=== PATIENT | male | born 1950 | race Caucasian/White ===

== ENCOUNTER → 2018-05-17 08:55 | Outpatient (CLI) | payer MEDICARE, SELFPAY ==
[2018-05-17 10:29] LABS: Absolute Lymphocyte Count 1.31 X10^3/ul (0.83-4.51); Absolute Neutrophil Count 2.8 X10^3/uL (2.0-7.7); Basophil# 0.06 X10^3/uL; Basophil% 1.2 % (0-1); Eosinophil# 0.21 X10^3/uL; Eosinophils% 4.2 % (0-5); Hematocrit 41.9 % (40-54); Hemoglobin 13.3 g/dl (13.0-16.5); Lymphocyte # 1.31 X10^3/ul (4.0); Mean Corp Hgb Conc 31.7 g/gl (32-36); Mean Platelet Vol. 10.6 fl (6.2-12.0); Monocyte# 0.63 X10^3/uL; Monocyte% 12.5 % (0-10); Neutrophil # 2.82 X10^3/uL (2.7-7.7); Neutrophil % 56.1 % (47-70); POSITIVE COUNT NO; POSITIVE DIFFERENTIAL NO; POSITIVE MORPHOLOGY NO; Platelet Count 284 K/mm3 (150-450); RBC Distribution Width CV 14.9 % (11.6-14.6); RBC Distribution Width SD 44.9 fl (35.1-43.9); Red Blood Count 5.11 M/mm3 (4.6-6.2)
[2018-05-17 10:59] LABS: Vitamin B12 300 pg/mL (211-911)
[2018-05-17 11:28] LABS: ALB/GLOB Ratio 0.9 RATIO (0.9-2.4); AST(SGOT) 18 U/L (15-37); Alanine Aminotransfer ALT/SGPT 25 U/L (16-61); Albumin, Serum 3.5 g/dL (3.2-5.0); Alkaline Phosphatase 61 U/L (45-117); Anion Gap 10 (5-15); BUN 20 mg/dL (7-18); BUN/Creat Ratio 19.4 RATIO (10-20); Calcium,Total 8.5 mg/dL (8.5-10.1); Chloride 107 mmol/L (98-107); Cholesterol 226 mg/dL (200); Creatinine, Serum 1.03 mg/dL (0.70-1.30); EST Glomerular Filtration Rate 77 mL/min (>60); Est Glom Filt Rate - Afr Amer 93 mL/min (>60); Globulin 3.9 g/dL (2.2-4.2); Glucose 87 mg/dL (74-106); High Density Lipoprotein 46 mg/dL; PSA,Total - Annual Screen 5.33 ng/mL (0.00-4.00); Protein, Total 7.4 g/dL (6.4-8.2); Sodium Level 143 mmol/L (136-145); Thyroid Stim Hormone (TSH) 1.56 uIU/mL (0.358-3.74); Triglycerides 126 mg/dL; Very Low Density Lipoprotein 25 mg/dL (5-40)
== END ==
PROVIDERS: Family Provider Family Medicine; PCP Family Medicine; Visit Provider Family Medicine
DX: Z00.01 Encounter for general adult medical examination with abnormal findings (principal); I10 Essential (primary) hypertension; E78.5 Hyperlipidemia, unspecified; G62.9 Polyneuropathy, unspecified; Z12.5 Encounter for screening for malignant neoplasm of prostate
CPT/HCPCS: 36415; 80053; 80061; 82607; 84153; 84443; 85025; G0103

== ENCOUNTER → 2018-11-14 | Outpatient (CLI) | payer MEDICARE, SELFPAY ==
[2018-11-14 13:12] LABS: Cholesterol 168 mg/dL (200); High Density Lipoprotein 53 mg/dL; PSA,Total- Diagnostic 6.77 ng/mL (0.0-4.0); Triglycerides 95 mg/dL; Very Low Density Lipoprotein 19 mg/dL (5-40)
== END | disposition home or self-care (01) ==
LOC: BFHLAB 12-27 15:28
PROVIDERS: Family Provider Family Medicine; PCP Family Medicine; Visit Provider Family Medicine
DX: E78.5 Hyperlipidemia, unspecified (principal); R97.20 Elevated prostate specific antigen [PSA]
CPT/HCPCS: 36415; 80061; 84153

== ENCOUNTER → 2019-05-16 15:33 | Outpatient (CLI) | payer MEDICARE, SELFPAY ==
[2019-05-16 16:48] LABS: Absolute Lymphocyte Count 1.72 X10^3/uL (0.83-4.51); Absolute Neutrophil Count 3.6 X10^3/uL (2.0-7.7); Basophil# 0.08 X10^3/uL; Basophil% 1.3 % (0-1); Eosinophil# 0.22 X10^3/uL; Eosinophils% 3.5 % (0-5); Hematocrit 40.7 % (40-54); Hemoglobin 12.5 g/dL (13.0-16.5); Lymphocyte # 1.72 X10^3/ul (4.0); Lymphocyte % 27.3 % (19-41); Mean Corp Hgb Conc 30.7 g/dL (32-36); Mean Corpuscular Hgb 26.8 pg (27.0-32.0); Mean Corpuscular Volume 87.2 fL (80-94); Mean Platelet Vol. 10.5 fl (6.2-12.0); Monocyte# 0.62 X10^3/uL; Monocyte% 9.8 % (0-10); NRBC Flagged by Analyzer 0 % (0-5); Neutrophil # 3.64 X10^3/uL (2.7-7.7); Neutrophil % 57.8 % (47-70); Platelet Count 265 K/mm3 (150-450); RBC Distribution Width SD 44.9 fl (35.1-43.9); Red Blood Count 4.67 M/mm3 (4.6-6.2); White Blood Count 6.3 K/mm3 (4.4-11.0)
[2019-05-16 17:02] LABS: ALB/GLOB Ratio 1.1 RATIO (0.9-2.4); AST(SGOT) 20 U/L (15-37); Alanine Aminotransfer ALT/SGPT 23 U/L (16-61); Albumin, Serum 3.8 g/dL (3.2-5.0); Alkaline Phosphatase 70 U/L (45-117); Anion Gap 4 (5-15); BUN 20 mg/dL (7-18); Calcium,Total 8.2 mg/dL (8.5-10.1); Chloride 109 mmol/L (98-107); Cholesterol 179 mg/dL (200); Creatinine, Serum 0.95 mg/dL (0.70-1.30); EST Glomerular Filtration Rate 84 mL/min (>60); Est Glom Filt Rate - Afr Amer 101 mL/min (>60); Globulin 3.5 g/dL (2.2-4.2); Glucose 88 mg/dL (74-106); High Density Lipoprotein 54 mg/dL; PSA,Total- Diagnostic 7.44 ng/mL (0.0-4.0); Protein, Total 7.3 g/dL (6.4-8.2); Sodium Level 143 mmol/L (136-145); Triglycerides 96 mg/dL; Very Low Density Lipoprotein 19 mg/dL (5-40)
[2019-05-16 17:08] LABS: Vitamin B12 455 pg/mL (211-911)
[2019-05-20 13:41] LABS: PSA, Free 3.16 ng/mL; PSA, Free % 36.3 % (.); PSA, Total Ultrasensitive 8.7 ng/mL (0.0-4.0)
== END ==
PROVIDERS: Family Provider Family Medicine; PCP Family Medicine; Visit Provider Urology
DX: I10 Essential (primary) hypertension (principal); E78.5 Hyperlipidemia, unspecified; E53.8 Deficiency of other specified B group vitamins; R97.20 Elevated prostate specific antigen [PSA]
CPT/HCPCS: 36415; 80053; 80061; 82607; 84153; 84154; 85025

== ENCOUNTER → 2019-12-31 10:20 | Outpatient (CLI) | payer MEDICARE, SELFPAY ==
[2019-12-31 11:49] LABS: PSA,Total- Diagnostic 9.57 ng/mL (0.0-4.0)
== END ==
PROVIDERS: PCP Family Medicine; Referring Provider Urology; Visit Provider Urology
DX: R97.20 Elevated prostate specific antigen [PSA] (principal)
CPT/HCPCS: 36415; 84153

== ENCOUNTER → 2020-02-05 11:38 | Outpatient (CLI) | payer MEDICARE, SELFPAY ==
--- NOTE | 2020-02-05 | PROSBIL_PTH ---
PATIENT: DAYANA MATA LOC: [facility] U#:[id number] AGE/SX: 74/M ROOM: RE02/05/[address]: Dr. Abdulaziz Mcclain MD : 1950 BED: DIS: SPEC #: [id number] RECD: 02/05/20 13:04 STATUS: GRAYSON SOTERO #: [id number] RITESH: 02/05/20 00:[address]: Abdulaziz Mcclain DEPT: SURGICAL PATHOLOGY RECD BY: Randall Aparicio ENTERED: 02/05/20 13:04 SP TYPE: PROST BX MIQUEL DR: Dr. Gera Belle DO Tissues: A - PROSTATE RIGHT B - PROSTATE RIGHT C - PROSTATE RIGHT D - PROSTATE LEFT E - PROSTATE LEFT F - PROSTATE LEFT Procedures: PROSTATE BX HEADER OPERATION: Prostate biopsy PRE-OP DIAGNOSIS: Elevated PSA, prostate cancer TISSUE SUBMITTED: A - Right apex, B - Right mid, C - Right base, D - Left apex, E - Left mid, F - Left base MICROSCOPIC DIAGNOSIS A. Right prostate, apex, core biopsy: Adenocarcinoma. [employer] grade: 7 (4+3)) Cores involved: 1 out of 1 core Tissue involved: 95% Perineural invasion: Present Greatest tumor length: 18 mm (discontinuous) B. Right prostate, mid, core biopsy: Adenocarcinoma. Abhinav grade: 7 (4+3)) Cores involved: 2 out of 2 cores Tissue involved: 85% Perineural invasion: Present Greatest tumor length: 11 mm (discontinuous) C. Right prostate, base, core biopsy: Adenocarcinoma. [employer] grade: 7 (4+3)) Cores involved: 2 out of 2 cores Tissue involved: 65% Perineural invasion: Present Greatest tumor length: 12mm. D. Left prostate, apex, core biopsy: Benign prostatic and skeletal muscle tissue. E. Left prostate, mid, core biopsy: Minimal chronic inflammation. F. Left prostate, base, core biopsy: Minimal chronic inflammation and focal acute inflammation. AM:veronique 02/06/20 COMMENT Case has been reviewed in consultation with Dr. Green who concurs with the above diagnosis. IDC:ANTON MICROSCOPIC DESCRIPTION Slides are reviewed. GROSS DESCRIPTION A - Received is one container designated prostate, right apex. The specimen consists of one elongated fragment of light sampson-white soft tissue measuring 1.3 cm in length and 0.1 cm in diameter. The specimen is totally submitted in one cassette. B - Received is one container designated prostate, right mid. The specimen consists of two elongated fragments of light sampson-white soft tissue measuring 1 and 1.8 cm in length and 0.1 cm in diameter. The specimen is totally submitted in one cassette. C - Received is one container designated prostate, right base. The specimen consists of two elongated fragments of light sampson-white soft tissue each measuring 1.5 cm in length and 0.1 cm in diameter. The specimen is totally submitted in one cassette. D - Received is one container designated prostate, left apex. The specimen consists of one elongated fragment of light sampson-white soft tissue measuring 1 cm in length and <0.1 cm in diameter. The specimen is totally submitted in one cassette. It is doubtful the specimen will survive processing. E - Received is one container designated prostate, left mid. The specimen consists of two elongated fragments of light sampson-white soft tissue each measuring 1 cm in length and 0.1 cm in diameter. The specimen is totally submitted in one cassette. F - Received is one container designated prostate, left base. The specimen consists of two elongated fragments of light sampson-white soft tissue each measuring 1.5 cm in length and 0.1 cm in diameter. The specimen is totally submitted in one cassette. / SJ:rg 02/05/20 TC:0 [facility]: [id number]
== END ==
PROVIDERS: PCP Family Medicine; Referring Provider Urology; Visit Provider Urology
DX: C61 Malignant neoplasm of prostate (principal)
CPT/HCPCS: 88305; G0416

== ENCOUNTER 2020-03-26 05:23 | Day surgery (SDC) | payer MEDICARE, SELFPAY ==
--- NOTE | 2020-03-20 10:50 | EKG12_ITS ---
Test Reason : PREOP Blood Pressure : / mmHG Vent. Rate : 054 BPM Atrial Rate : 054 BPM P-R Int : 154 ms QRS Dur : 090 ms QT Int : 428 ms P-R-T Axes : 022 028 048 degrees QTc Int : 405 ms Sinus bradycardia with sinus arrhythmia Otherwise normal ECG Confirmed by EMERITA KAHN, JOSE GUADALUPE ([id number]), associate entertainment editor JOSELYN VINSON ([id number]) on 03/24/2020 2:03:00 PM Referred By: Abdulaziz Mcclain Confirmed By:GLENN FELDER MD
[2020-03-20 11:37] LABS: Hematocrit 40.5 % (40-54); Hemoglobin 12.2 g/dL (13.0-16.5); Mean Corp Hgb Conc 30.1 g/dL (32-36); Mean Corpuscular Hgb 24.8 pg (27.0-32.0); Mean Corpuscular Volume 82.3 fL (80-94); Mean Platelet Vol. 10.6 fl (6.2-12.0); Platelet Count 292 K/mm3 (150-450); RBC Distribution Width CV 17.2 % (11.6-14.6); RBC Distribution Width SD 49.5 fl (35.1-43.9); Red Blood Count 4.92 M/mm3 (4.6-6.2); White Blood Count 6.4 K/mm3 (4.4-11.0)
[2020-03-26] VITALS (12 sets, daily range): BP systolic 108–146; BP diastolic 64–105; PULSE 55–86; RESP 16–18; TEMP 36.2–37.2; O2SAT 95–100; BMI 30.9
[2020-03-26] MEDS: Lactated Ringers 1,000 ML 100 ML IV ×3 (06:12→17:54)
--- NOTE | 2020-03-26 07:11 | PCM.HP.STD ---
Problem List (1) Prostate cancer Status: Acute History of Present Illness Date of Admission: 03/26/20 Chief Complaint: Prostate cancer The patient is a 69 year old male with history of large prostate was found to have prostate cancer is elected undergo radical prostatectomy with bilateral nerve sparing. Past Medical History Allergies No Known Allergies Allergy (Verified 03/26/20 05:48) Home Medications: Ambulatory Orders Medication Instructions Recorded Atenolol [Tenormin (Beta Victor Hugo)] 50 mg PO DAILY 12/30/14 Omeprazole [Prilosec] 20 mg PO DAILY 12/30/14 Acetaminophen [Tylenol Extra 500 - 1,000 mg PO Q6H PRN PRN 03/17/20 Strength] Pravastatin [Pravachol] 20 mg PO QHS 03/17/20 Tamsulosin HCl [Flomax] 0.4 mg PO QHS 03/17/20 Surgical History: no surgical history Smoking Status: Never smoker Tobacco Use: Non-smoker Review of Systems Constitutional: Denies: Chills, Fever, Weight Change HEENT: Denies: Head Aches, Sinus Congestion, Sinus Drainage Cardiovascular: Denies: Chest Pain, Palpitations Respiratory: Denies: Cough, Shortness of breath at rest, Sputum production Gastrointestinal: Denies: Abdominal Pain, Nausea, Vomiting Genitourinary: Denies: Dysuria Musculoskeletal: Denies: Joint Pain, Joint Tenderness Skin: Denies: Rash, Wounds Neurological: Denies: Numbness, Tingling, Focal weakness Psychiatric: Denies: Anxiety, Depression, Homicidal Ideations, Suicidal Ideations Hematologic/ Lymphatic: Denies: Easy Bruising, Easy Bleeding VTE Information - Inpt Only VTE Present on Admission: No Patient Problems: Active and Suspected Problems Prostate cancer (Acute) - Physical Exam Vitals/I&O's: Vital Signs Temp Pulse Resp BP Pulse Ox 98.3 F 86 16 138/94 H 97 03/26/20 05:51 03/26/20 05:51 03/26/20 05:51 03/26/20 05:51 03/26/20 05:51 Oxygen Delivery Method Room Air Weight: 103.5 kg Body Mass Index (BMI) 30.9 General: Alert, Oriented x3, Cooperative HEENT: Atraumatic, PERRLA, EOMI, Normocephalic Neck: Supple, No JVD, Negative Carotid Bruits Lungs: Clear to auscultation, Normal air movement Cardiovascular: Regular rate, No murmurs Abdomen: Bowel Sounds Present, Soft, Non Tender Extremities: No edema, Capillary Refill Less than 3 Seconds Skin: No rashes, No breakdown Musculoskeletal: No Tenderness to Palpation of Joints or Extremities Neurological: Cranial nerves II-XII grossly intact Psych/Mental Status: Normal Affect, Appropriate Current Medications Cefazolin Sodium 2 gm/ Sodium (Chloride) 110 mls @ 150 mls/hr IV PREOP ONE Stop: 03/26/20 07:53 Lactated Ringer's () 1,000 mls @ 100 mls/hr IV .Q10H LEXUS Last Admin: 03/26/20 06:12 Dose: 100 mls/hr Documented by: Lactated Ringer's () 1,000 mls @ 100 mls/hr IV .Q10H LEXUS Last Admin: 03/26/20 06:15 Dose: 100 mls/hr Documented by: Assessment/Plan All Active Problems Prostate cancer (Acute) Plan to proceed with radical prostatectomy with bilateral nerve sparing.
--- NOTE | 2020-03-26 07:16 | PCM.DC.URO ---
Discharge Diet: Light diet - advance as tolerated Discharge Activity: May Not Drive, May not drive while taking narcotic pain medications., May Shower Return to work on:: 05/07/20 May shower in (days): 1 Call your doctor if your incision/area has: Continuous Slow Oozing, Sudden Increased Bleeding, Increased Pain/ Swelling, Increased Redness, Foul Smelling Discharge Call your doctor if you observe: Fever of 101 or Higher, Inability to have a bowel movement, Uncontrolled pain Suture Line Care: Avoid Pulling/Pushing, Avoid Pinching/Bending Instructions: Radical Prostatectomy Allergies/Adverse Reactions: Allergies No Known Allergies Allergy (Verified 03/26/20 05:48) Medications to take at Discharge Atenolol [Tenormin (Beta [employer])] 50 mg PO DAILY 12/30/14 Omeprazole [Prilosec] 20 mg PO DAILY 12/30/14 Acetaminophen [Tylenol Extra Strength] 500 - 1,000 mg PO Q6H PRN PRN 03/17/20 Pravastatin [Pravachol] 20 mg PO QHS 03/17/20 Tamsulosin HCl [Flomax] 0.4 mg PO QHS 03/17/20 Ciprofloxacin [Cipro] 500 mg PO BID #20 tab 03/26/20 Docusate Sodium [Colace] 100 mg PO BID #20 cap 03/26/20 Hydrocodone/Acetaminophen [[employer] 5-325 Tablet] 1 each PO Q4H PRN PRN 5 Days #14 tablet 03/26/20 The following prescriptions were given: Ciprofloxacin [Cipro] 500 mg PO BID #20 tab Transmission Status: Pending to [facility] Docusate Sodium [Colace] 100 mg PO BID #20 cap Transmission Status: Pending to [facility] Hydrocodone/Acetaminophen [[employer] 5-325 Tablet] 1 each PO Q4H PRN PRN 5 Days #14 tablet PRN Reason: Pain Score 1-10/10 Transmission Status: Sent to [facility] Orders to be completed after discharge: 12 Lead EKG [[facility]] Time Frame: 03/17/20, Facility: [facility], Location: Cardiovascular Services Primary Care Physician: Gera Belle DO [Primary Care Provider] - Test Results: Test results from this visit will be discussed in further detail at your follow-up appointment, if applicable. Please Follow Up With: Abdulaziz Mcclain MD When: in 2 weeks, please call to make an appointment. Proposed Discharge Date: 03/27/20
[2020-03-26] MEDS: Cefazolin 2 GM in 0.9% Normal Saline 100 ML IV (07:22)
--- NOTE | 2020-03-26 07:30 | PROST_PTH ---
PATIENT: DAYANA MATA LOC: [facility] U#:[id number] AGE/SX: 69/M ROOM: RE03/26/[address]: Dr. Abdulaziz Mcclain MD : 1950 BED: DIS: 03/28/2020 SPEC #: [id number] RECD: 03/26/20 13:25 STATUS: GRAYSON REEarl #: [id number] RITESH: 03/26/20 07:[address]: Abdulaziz Mcclain DEPT: SURGICAL PATHOLOGY RECD BY: Darwin Pastor ENTERED: 03/27/20 09:48 SP TYPE: PROSTATE OTHR DR: Dr. Gera Belle DO Tissues: A - Prostate, NOS B - Adipose tissue C - LYMPH NODE BIOPSY D - LYMPH NODE BIOPSY E - Seminal vesicle, NOS F - Rectum, NOS G - Rectum, NOS Procedures: Surgery Specimen Level III Surgery Specimen Level IV Surgery Specimen Level HEADER OPERATION: Lap robotic radical prostatectomy with nerve monitoring PRE-OP DIAGNOSIS: Elevated PSA; malignant neoplasm of prostate; BPH with lower urinary tract symptoms TISSUE SUBMITTED: A - Prostate, B - Fat over prostate, C - Lymph nodes, right, D - Lymph nodes, left, E - Seminal vesicle, F - Margin off rectum, G - Distal margin off rectum MICROSCOPIC DIAGNOSIS A. Prostate, radical prostatectomy: Prostatic adenocarcinoma. See cancer summary in comment section. B. Fat over prostate: A piece of mature adipose tissue, negative for carcinoma. C. Right lymph node: One lymph node, negative for metastatic carcinoma. D. Left lymph nodes: Two out of two lymph nodes, negative for metastatic carcinoma. E. Seminal vesicle: A piece of fibroadipose and fibromuscular tissue with crush cells. Definite seminal vesicle tissue is not identified. Negative for carcinoma. F. Margin of rectum: A piece of fibroconnective tissue, positive for carcinoma. G. Distal margin of rectum, biopsy: A piece of fibromuscular and fibroadipose tissue, positive for carcinoma. SJ:veronique 03/31/20 COMMENT PROSTATE CANCER (RADICAL) SUMMARY: Procedure: Radical Prostatectomy Prostate Size: Weight: 244.6 gm Size: 9.5 cm craniocaudally, 8.5 cm transversely and 6 cm anterior-posteriorly Histologic type: Adenocarcinoma Histologic grade: Grade group 5, Abhinav score 4+5=9 Tertiary pattern: Grade 3 Tumor Quantitation: Estimated percentage of prostate involved by tumor: ~20% Location of dominant tumor: Right lobe Extraprostatic Extension: Present, nonfocal Location of extraprostatic Extension: Right posterior Urinary Bladder Neck Invasion: Present. See comment below. Seminal Vesicle Invasion: Cannot be determined. See comment below. Lymphovascular Invasion: Not identified Perineural Invasion: Present and frequent Margins: Involved by invasive carcinoma. Non-limited (greater than or equal to 3 mm). See comment below. Linear length of positive margin: 1.5 cm Margin positivity in area of extraprostatic extension: Present Specimens F & G, most likely represent real posterior margin and area of extraprostatic extension. Treatment effect: No known presurgical therapy. Regional Lymph Nodes: Number of lymph nodes involved by carcinoma: 0 Total Number of Lymph Nodes Examined: 3 Additional Pathologic Findings: - Benign nodular prostatic hyperplasia, glandular and stromal types. - Chronic inflammation. Ancillary study: Not performed PATHOLOGIC STAGE: pT3 pN0 Mx The above summary is in compliance with [employer] (CAP) Cancer Protocols Checklist and [place] [employer] Committee on Cancer (AJCC), Staging Manual, 8th Ed. Please make reference to previous specimen ([id number]) right prostate, apex, mid and base, core biopsy with diagnosis of prostatic adenocarcinoma. Note: The tumor is present in apical, mid and basal portion of right and left lobes and predominantly present in the right lobe. The tumor measures approximately 9.0 cm in greatest dimension. Apical shave and bladder shaved margins are positive for tumor. No gross seminal vesicle tissue is identified. Seminal vesicle tissue is noted microscopically in blocks 14 and 15 and not involved by the carcinoma. Specimen E submitted as seminal vesicle tissue is also negative for carcinoma, however, shows marked crush artifact. Specimen F and G, margin of rectum and distal margin of rectum are extensively involved by the tumor. This case is discussed with Dr. Mcclain on 04/01/20. Case has been reviewed in consultation with Dr. Mullen who concurs with the above diagnosis. IDC:AM MICROSCOPIC DESCRIPTION Slides are reviewed. GROSS DESCRIPTION A - Received is one container labeled with the patient's name and designated prostate. The specimen consists of a prostate gland weighing 244.6 gm and measuring 9.5 cm craniocaudally, 8.5 cm transversely and 6 cm anterior-posteriorly without seminal vesicles or vas deferens. The specimen is differentially inked as follows: anterior - red, right half - blue, left half - green and entire posterior surface - black. The gland is serially sectioned from apex of gland to base of gland at approximately 3-4 mm thickness. Serial sections do not reveal a distinct mass lesion. Machine Preservative Filler sections are submitted as follows: 1 - distal urethral shaves margin, 2 - bladder shaved margin, 3 - prostate, most distal section, 4-7 - apex, 8-15 - mid portion of prostate, 16-20 - basal portion of prostate gland. / AM: 03/28/20 B - Received in fixative is one container labeled with the patient's name and designated fat over prostate. The specimen consists of reddish-sampson clotted blood measuring 2 x 1 x <0.1 cm. The specimen is totally submitted in one cassette. / AM: 03/27/20 C - Received in fixative is one container labeled with the patient's name and designated right lymph nodes. The specimen consists of two irregular fragments of yellow-sampson soft tissue ranging in size from 1?to 2.5 cm. Dissection reveals a single nodule measuring 0.8 cm. The specimen is totally submitted in one cassette. / AM: 03/27/20 D - Received in fixative is one container labeled with the patient's name and designated left lymph nodes. The specimen consists of a single irregular fragment of yellow-sampson fibrofatty tissue measuring 3 x 1.5 x 1 cm. Dissection reveals two light sampson nodules ranging in size from 1.2 to 1.5 cm. The nodules are bisected and submitted separately in two cassettes as follows: 1 - one nodule, 2 - the second nodule with adjacent fatty tissue. / AM: 03/27/20 E - Received in fixative is one container labeled with the patient's name and designated seminal vesicle. The specimen consists of an irregular fragment of sampson tissue measuring 2 x 1 x 0.3 cm. The specimen is totally submitted in one cassette. / AM: 03/27/20 F - Received in fixative is one container labeled with the patient's name and designated margin of rectum. The specimen consists of a single irregular fragment of sampson tissue measuring 1.2 x 0.2 x 0.2 cm. The specimen is totally submitted in one cassette. / AM:veronique 03/27/20 G - Received in fixative is one container labeled with the patient's name and designated distal margin of rectum. The specimen consists of an irregular fragment of light to dark sampson tissue measuring 2.2 x 1.5 x 1 cm. The specimen is bisected and totally submitted in one cassette. / AM:veronique 03/27/20 TC:0 CPT:51569, 59037 x2, [id number] x4
[2020-03-26] MEDS: Bupivacaine Mpf 0.5% 30 ML VIAL (07:56)
[2020-03-26] MEDS: Ketorolac 15 MG/ML Vial IV ×2 (12:00→17:55)
--- NOTE | 2020-03-26 12:34 | OP.PCM_ITS ---
Problem List (1) Prostate cancer Status: Acute Report of Operation Date of Procedure: 03/26/20 Pre-Operative Diagnosis: Prostate cancer, BPH with obstruction, left inguinal hernia Post-Operative Diagnosis: Same Surgery/Procedure Performed:: Multiple procedures. #1 radical prostatectomy non-nerve sparing. #2 bilateral pelvic lymph node dissection. #3 EMG monitoring of the sphincter and urethral sphincter complex. #4 right inguinal hernia repair. #5 suture suspension of the urethra and reconstruction of the bladder neck Description of Surgical Findings:: 69-year-old male was taken back to the operating room at the smooth induction of general anesthesia. He was placed in dorsolithotomy position. The penis testicles abdomen was shaved prepped and draped in usual sterile fashion. We laid the drapes on the patient lower legs sides once the patient was completely draped then made incision above the umbilicus dissected down to the fascia and then introduced a Veress needle into the peritoneal cavity. I then filled the peritoneal cavity with CO2 gas and then placed my camera trocar into the peritoneal cavity the patient was then placed in full Trendelenburg position he was stable on the table I then placed the right and left robotic arm and the second left robotic arm had an air seal port placed and a air suction by millimeter port placed for suction for the administrative assistant office manager. We then started dissection by first lateralizing and mobilizing the colon off the lateral wall to allow space within the pelvis. Very tight pelvis and a very large prostate as we approached down into the pelvis I incised the peritoneum over the vas deferens and seminal vesicles both the vas deferens and several ossicles were dissected out quite difficult dissection of the extreme Hardik large prostate was pushing on the vas deferens and several vesicles the entire time. I do use the fourth arm and the administrative assistant office manager to retract the lateral lateral ordonez in order to dissect both vas deferens and seminal vesicles once this was accomplished then I created the space of Retzius I incised the peritoneum on the lateral wings of the bladder drop the bladder pulled the bladder on traction using the fourth arm. I then created space of Retzius. We then proceeded with the lymph node dissection. We dissected out the right lymph node packet the landmarks were identified the external iliac vein was cleaned and dissected the lateral pelvic wall was cleaned and dissected we identified the obturator nerve and vessels. Inferiorly and the note of [place] was dissected and cleaned and then after taking the lymph node tissue off the right side we went to the left side and a complete lymph node dissection on the left pelvic lymph nodes once this was finished and then we went to the prostate we took the fat off the prostate this was sent off as a specimen we then incised the endopelvic fascia holding the prostate laterally on both the right and left side working away to the apex we came across the dorsal vein complex. The dorsal vein complex was suture ligated with an 0 Vicryl stitch we then came to the junction between the prostate and the bladder and started with the dissection of the bladder off the prostate prostate was extremely large but 130 g in the bladder was hanging on the edges were to dissect the bladder off the edge of the prostate creating a very large bladder opening identified the right and left ureter which were effluxing clear urine I then dissected the prostate off the bladder inferiorly all the way until we reached the seminal vesicles and vas deferens. Then at this point the EMG electrodes were placed into the abdomen we put him in the pelvic ordonez we identified the nerve bundles controlling the sphincter on the right side and the left side we able to get good action potentials on both sides identified the location of these nerve bundles running in the pelvic wall this allowed me to then dissect this area and try to avoid injury to the branches of the pudendal nerve. We then did start a dissection of the prostate next extremely difficult dissection a very large prostate came through the pedicles of the prostate and right side of the*working on my prostate and the right side towards the apex prostate was extremely scarred down and fixed to the lateral pelvic wall and also fixed to the rectum as a dissected to the right side at this point a backed out the side to go the left side 40 the left side was not fixed and was free of is able to dissected on the left side all the way to the apex but it was extremely large prostate was a non-nerve sparing dissection given the difficulty in doing the dissection then I was able to come through the dorsal vein complex came through the urethra sparing as much as urethral length as possible and then went back to the right side again the right side was the area were extremely scarred down took a long time to free up the prostate off the right lateral pelvic wall went into the fat next to the rectum and also was teasing the prostate right off the rectal fibers very nervous about how I got close to the rectum in that side so we ended up checking the rectum at the end of the dissection once again the prostate off the rectum there was some tissue pieces are still stuck in the rectum these were dissected off as a separate specimen and labeled as an apical tissue sent as a permanent section of the check for cancer but given the minor fibrotic tissue and scarring in the size very concerned that there could be extension of the cancer onto the perirectal fat area and into the next of the rectal area. We filled the pelvis with water I then had administrative assistant office manager put a Alvina syringe in the rectum and we blew up the rectum with air and there was no leakage no bubbles were seen so after doing the bubble test was confident that there is no injury to the rectum given how difficult the dissection once. We then turned our attention to the right pelvic area we could see gaping inguinal hernia direct hernia in the right inguinal area right next to the inferior umbilical artery and along Spencer's ligament. I then used a mesh plug and put the mesh into the hernia defect I then closed the hernia defect over the mesh plug with a running 3-0 Vicryl in interrupted fashion this closed up nicely and the hernia was repaired quite simple mesh plug was used. I then turned our attention to the prostate suture suspension of the urethra was done to prevent incontinence I then worked on the bladder neck reconstructed the bladder neck in a tennis racquet fashion to close the bladder and the bladder over the ureteral orifices to leave a small gap on the top of the bladder again in a tennis racquet fashion then anastomosis between the bladder and the urethra was accomplished over a catheter and with a running 3-0 Vicryl stitches. Very long difficult case given how big the prostate was but actually the most of difficulty was necessarily the size of prostate but asked how it was super stuck on the right lateral wall the prostate is really concerning for extraprostatic disease of extension what to see what the pathology shows family was aware the findings and the patient. The end of the case we extracted the prostate to the soup umbilical incision with open up this quite large we closed this incision with a running 0 Vicryl and then put several interrupted stitches to close any gaps the end is a nice closure of the supraumbilical incision patient anesthetic was reversed and is taken back to PACU good condition catheter was then was flushing clear urine. Minimal blood loss and the case was a long difficult case to do the size of the prostate but mostly due to the fixed prostate on the rectum and the right distal part of the prostate in the rectal area. Type of Anesthesia:: General Drains: remy Grafts/Implants Used: Bard ,mesh perfex plug [id number], lot: [id number] - Admit VTE Documentation VTE Present on Admission: No VTE Mechan Device Prophylaxis: SCD's
[2020-03-26] MEDS: Ciprofloxacin 400 MG/200 ML BAG 200 MG IV (16:18)
[2020-03-26] MEDS: Docusate Sodium 100 MG Capsule PO ×2 (17:19→21:44)
[2020-03-26] MEDS: Magnesium Hydroxide 30 ML UDC 15 ML PO (17:19)
[2020-03-26] MEDS: Acetaminophen 500 MG Tablet PO (21:14)
[2020-03-26] MEDS: Pravastatin 20 MG Tablet PO (21:44)
[2020-03-27] MEDS: 0.9% Saline Lock 10 ML Syringe IV ×4 (00:05→23:49)
[2020-03-27] MEDS: Ketorolac 15 MG/ML Vial IV ×5 (00:05→23:51)
[2020-03-27] MEDS: Lactated Ringers 1,000 ML 100 ML IV ×2 (02:41→23:48)
[2020-03-27] MEDS: Ciprofloxacin 400 MG/200 ML BAG 200 MG IV (02:42)
[2020-03-27 02:45] VITALS: BP 104/61; PULSE 68; RESP 18; TEMP 37.1; O2SAT 95
[2020-03-27 06:16] LABS: Hematocrit 33.2 % (40-54); Hemoglobin 9.9 g/dL (13.0-16.5); Mean Corp Hgb Conc 29.8 g/dL (32-36); Mean Corpuscular Hgb 24.6 pg (27.0-32.0); Mean Corpuscular Volume 82.4 fL (80-94); Mean Platelet Vol. 9.9 fl (6.2-12.0); Platelet Count 194 K/mm3 (150-450); RBC Distribution Width CV 16.6 % (11.6-14.6); RBC Distribution Width SD 49.4 fl (35.1-43.9); Red Blood Count 4.03 M/mm3 (4.6-6.2); White Blood Count 7.9 K/mm3 (4.4-11.0)
[2020-03-27 06:39] LABS: Anion Gap 5 (5-15); BUN 14 mg/dL (7-18); BUN/Creat Ratio 13.6 RATIO (10-20); Calcium,Total 7.8 mg/dL (8.5-10.1); Chloride 103 mmol/L (98-107); Creatinine, Serum 1.03 mg/dL (0.70-1.30); EST Glomerular Filtration Rate 76 mL/min (>60); Est Glom Filt Rate - Afr Amer 92 mL/min (>60); Estimated Creatinine Clearance 75.34 ml/min; Glucose 104 mg/dL (74-106); Potassium 3.4 mmol/L (3.5-5.1); Sodium Level 136 mmol/L (136-145)
[2020-03-27] MEDS: Enoxaparin 40 MG/0.4 ML Syringe SC (06:46)
--- NOTE | 2020-03-27 07:29 | PCM.PROGNOTE ---
Patient Problems: Active and Suspected Problems Prostate cancer (Acute) Subjective: 69-year-old male status post radical prostatectomy for a very large prostate was a difficult surgery with prostate fixed on the patient's right pelvis. But this morning he is doing well urine is nice and clear with no blood draining good amount of urine he is up and around in bed. Tolerating liquids for now reports rumbles in his belly but no gas yet. - Physical Exam Vitals/I&O's: Vital Signs Temp Pulse Resp BP Pulse Ox 98.8 F 68 18 104/61 95 03/27/20 02:45 03/27/20 02:45 03/27/20 02:45 03/27/20 02:45 03/27/20 02:45 Oxygen Flow Rate (L/min) 2 Oxygen Delivery Method Room Air Weight: 103.5 kg Body Mass Index (BMI) 30.9 Intake and Output for Last 24 Hours 03/25/20 03/26/20 03/27/20 23:59 23:59 23:59 Intake Total 2950 / 2950 1281.66 / 1281.66 Output Total 1650 / 1650 800 / 800 Balance 1300 / 1300 481.66 / 481.66 General: Alert, Oriented x3, Cooperative HEENT: Atraumatic, PERRLA, EOMI, Normocephalic Neck: Supple, No JVD, Negative Carotid Bruits Lungs: Clear to auscultation, Normal air movement Cardiovascular: Regular rate, No murmurs Abdomen: Bowel Sounds Present, Soft, Non Tender Extremities: No edema, Capillary Refill Less than 3 Seconds Skin: No rashes, No breakdown Musculoskeletal: No Tenderness to Palpation of Joints or Extremities Neurological: Cranial nerves II-XII grossly intact Psych/Mental Status: Normal Affect, Appropriate Laboratory Results 03/27/20 06:00: WBC 7.9, RBC 4.03 L, Hgb 9.9 L, Hct 33.2 L, MCV 82.4, MCH 24.6 L, MCHC 29.8 L, RDW Std Deviation 49.4 H, RDW Coeff of Sangeeta 16.6 H, Plt Count 194, MPV 9.9 03/27/20 06:00: Sodium 136, Potassium 3.4 L, Chloride 103, Carbon Dioxide 28.0, Anion Gap 5, BUN 14, Creatinine 1.03, Estim Creat Clear Calc 75.34, Est GFR (MDRD) Af Amer 92, Est GFR (MDRD) Non-Af 76, BUN/Creatinine Ratio 13.6, Glucose 104, Calcium 7.8 L Current Medications Acetaminophen (Tylenol) 500 mg PO Q4H PRN PRN PRN Reason: Pain Score 1-10/10 /Headache Last Admin: 03/26/20 21:14 Dose: 500 mg Documented by: Atenolol (Tenormin (Beta Victor Hugo)) 50 mg PO DAILY [facility] Belladonna Alkaloids/Opium (B & O) 60 mg RECTAL Q6H PRN PRN PRN Reason: Spasm Docusate Sodium (Colace) 100 mg PO BID [facility] Last Admin: 03/26/20 21:44 Dose: 100 mg Documented by: Enoxaparin Sodium (Lovenox) 40 mg SC DAILY@0600 [facility] Last Admin: 03/27/20 06:46 Dose: 40 mg Documented by: Hydromorphone HCl (Dilaudid Inj) 1 mg IV Q2H PRN PRN PRN Reason: Pain Score 6-10/10 Lactated Ringer's () 1,000 mls @ 100 mls/hr IV .Q10H [facility] Last Infusion: 03/27/20 03:42 Dose: 100 mls/hr Documented by: Ketorolac Tromethamine (Toradol (Bkc)) 15 mg IV Q6 [facility] Stop: 03/31/20 12:01 Last Admin: 03/27/20 05:38 Dose: 15 mg Documented by: Magnesium Hydroxide (Milk Of Magnesia) 15 ml PO DAILY [facility] Last Admin: 03/26/20 17:19 Dose: 15 ml Documented by: Ondansetron HCl (Zofran) 4 mg IV Q6H PRN PRN PRN Reason: Nausea Oxycodone HCl (Oxyir) 5 mg PO Q4H PRN PRN PRN Reason: Pain Score 6-10/10 Pantoprazole Sodium (Protonix) 20 mg PO DAILY [facility] Pravastatin Sodium (Pravachol) 20 mg PO QHS [facility] Last Admin: 03/26/20 21:44 Dose: 20 mg Documented by: Sodium Chloride () 10 - 40 ml IV UD PRN PRN Reason: SALINE FLUSH Last Admin: 03/27/20 05:38 Dose: 10 ml Documented by: Tolterodine Tartrate (Detrol La) 4 mg PO DAILY PRN PRN PRN Reason: Spasms Medical Necessity - Tobacco Use Smoking Status: Never smoker Tobacco Use: Non-smoker Assessment/Plan All Active Problems Prostate cancer (Acute) Plan today is to proceed with soft diet and if he can tolerate the food walker ambulate be strong then go home with a Alves catheter and follow-up in 2 weeks in my office for catheter removal.
[2020-03-27 09:13] VITALS: BP 112/66; PULSE 80; RESP 16; TEMP 36.7; O2SAT 98
[2020-03-27] MEDS: Pantoprazole Sodium 20 MG Tablet PO (09:17)
[2020-03-27] MEDS: Magnesium Hydroxide 30 ML UDC 15 ML PO (09:17)
[2020-03-27] MEDS: Docusate Sodium 100 MG Capsule PO ×2 (09:17→22:00)
[2020-03-27] MEDS: Atenolol 50 MG Tablet PO (09:17)
[2020-03-27 10:54] VITALS: BMI 30.9
--- NOTE | 2020-03-27 12:47 | PHA.DC.MC ---
Pharmacy Service has performed discharge medication reconciliation and counseling for this patient. The patient was counseled on the following discharge medications and changes in medications for homegoing were reviewed. 1. CIPRO 2. DOCUSATE 3. PERCOCET The Reason for Use, instructions for use, and potential side effects were reviewed for all new medications. The patient's questions regarding all of their medications were answered. The patient was able to verbally demonstrate an understanding of their discharge medications. Home Medications Atenolol [Tenormin (Beta Victor Hugo)] 50 mg PO DAILY 12/30/14 Omeprazole [Prilosec] 20 mg PO DAILY 12/30/14 Acetaminophen [Tylenol Extra Strength] 500 - 1,000 mg PO Q6H PRN PRN 03/17/20 --> REVIEWED MAX DOSING SINCE PT HAS PERCOCET ORDERED Pravastatin [Pravachol] 20 mg PO QHS 03/17/20 Tamsulosin HCl [Flomax] 0.4 mg PO QHS 03/17/20 Ciprofloxacin [Cipro] 500 mg PO BID #20 tab 03/26/20 Docusate Sodium [Colace] 100 mg PO BID #20 cap 03/26/20 Oxycodone HCl/Acetaminophen [Percocet 5/325] 1 tab PO Q4H PRN PRN 5 Days #20 tab 03/26/20 The patient's discharge medication list was reviewed for discrepancies and discrepancies were resolved.
[2020-03-27 12:55] VITALS: O2SAT 95
[2020-03-27 14:54] VITALS: BMI 30.9
[2020-03-27 15:13] VITALS: BP 137/82; PULSE 86; RESP 16; TEMP 36.9; O2SAT 95
[2020-03-27] MEDS: Tolterodine Tartrate 4 MG CAP.SA PO (16:49)
[2020-03-27 18:05] VITALS: BMI 30.9
[2020-03-27 21:59] VITALS: BP 149/78; PULSE 92; RESP 18; TEMP 37; O2SAT 93
[2020-03-27] MEDS: Pravastatin 20 MG Tablet PO (22:00)
[2020-03-28 04:25] VITALS: BP 144/88; PULSE 98; RESP 16; TEMP 36.8; O2SAT 94
[2020-03-28] MEDS: 0.9% Saline Lock 10 ML Syringe IV (06:11)
[2020-03-28] MEDS: Ketorolac 15 MG/ML Vial IV (06:11)
[2020-03-28] MEDS: Enoxaparin 40 MG/0.4 ML Syringe SC (06:15)
[2020-03-28 08:06] VITALS: O2SAT 92
[2020-03-28 10:13] VITALS: BP 145/97; PULSE 90; RESP 18; TEMP 37.3; O2SAT 95
[2020-03-28] MEDS: Pantoprazole Sodium 20 MG Tablet PO (10:36)
[2020-03-28] MEDS: Docusate Sodium 100 MG Capsule PO (10:37)
[2020-03-28] MEDS: Magnesium Hydroxide 30 ML UDC 15 ML PO (10:37)
[2020-03-28] MEDS: Atenolol 50 MG Tablet PO (10:37)
== END 2020-03-28 11:20 | disposition home or self-care (01) ==
LOC: SDC 05:24 → AC 05:24 → MS3 08:32
PROVIDERS: Anesthesiology; PCP Family Medicine; Referring Provider Urology; Visit Provider Urology
PROC: 0VT04ZZ Resection of Prostate, Percutaneous Endoscopic Approach (ICD-10-PCS; CPT 55866; principal; 2020-03-26 07:10)
DX: C61 Malignant neoplasm of prostate (principal); N40.1 Benign prostatic hyperplasia with lower urinary tract symptoms; N13.8 Other obstructive and reflux uropathy; K40.90 Unilateral inguinal hernia, without obstruction or gangrene, not specified as recurrent; Z11.59 Encounter for screening for other viral diseases; I10 Essential (primary) hypertension; K21.9 Gastro-esophageal reflux disease without esophagitis; E78.00 Pure hypercholesterolemia, unspecified; Z87.442 Personal history of urinary calculi; Z86.718 Personal history of other venous thrombosis and embolism; Z79.01 Long term (current) use of anticoagulants; Z79.899 Other long term (current) drug therapy
CPT/HCPCS: 00860; 38571; 49650; 51784; 51990; 53899; 55866; S2900; 36415; 80048; 85027; 86850; 86900; 86901; 87635; 88304; 88305; 88309; 93005; 94799; 99251; J7120; A4216; C1781; G0463; J0744; J2405; U0003

== ENCOUNTER 2020-04-10 20:18 | Emergency (ER) | payer MEDICARE, SELFPAY ==
[2020-03-26 14:54] VITALS: BMI 30.9
[2020-04-10 20:19] VITALS: BP 139/82; PULSE 90; RESP 18; TEMP 36.8; O2SAT 97; BMI 30.6
--- NOTE | 2020-04-10 21:53 | US_ITS ---
HISTORY: S/P PROCTECTOMY NOW WITH RT THIGH PAIN AND SWELLING EXAMINATION: US Venous Duplex LE Unilat / Limited TECHNIQUE: Cohen scale, pulse wave, and color flow Doppler imaging was performed of the lower extremity venous system. The right greater saphenous, common femoral, femoral, and popliteal veins were interrogated. COMPARISON: No comparisons. 17 cine clips FINDINGS: There is normal compression of most of the remains within the right thigh. There is absence of compression with echogenic intraluminal filling defect within the proximal right femoral vein, and within parts of the proximal right greater saphenous vein. US/Venous Duplex Imag/Limited/Uni IMPRESSION: Acute DVT within the proximal right femoral vein and greater saphenous veins at 2304 Reported and signed by: Zain Martin MD Electronically Signed: Zain Martin MD at 23:03 EDT Tel , Service support ,
--- NOTE | 2020-04-10 21:54 | ED.VIS.GEN ---
History of Present Illness Chief Complaint: Lower Extremity Injury Detail of Chief Complaint: Swelling and pain right thigh Informant: Patient Onset: Today Current Severity: Mild Maximum Severity: Mild Narrative: Patient presents with pain, swelling, redness to the proximal right thigh. He is 2 weeks postop prostatectomy and hernia repair secondary to prostate cancer. He was seen by his urologist this morning to have his Alves catheter removed. At that time he noted to have some slight swelling in the proximal thigh. As the day went on the swelling slightly worsened and became more erythematous and painful. Patient does have a history of DVT after a long trip. He was on anticoagulants for short time but is not on them long-term. - Past Medical History (1) GERD (gastroesophageal reflux disease) Status: Chronic (2) Hypertension Status: Chronic (3) DVT (deep venous thrombosis) Status: Chronic (4) Prostate cancer Status: Acute Past Medical History - Allergies and Home Meds Allergies/Adverse Reactions: Allergies acetaminophen [From Vicodin] Adverse Reaction (Verified 04/10/20 20:22) Nausea/Vom/Diarrhea hydrocodone [From Vicodin] Adverse Reaction (Verified 04/10/20 20:22) Nausea/Vom/Diarrhea Primary Care Physician: Gera Belle DO [Primary Care Provider] - Prior records reviewed: Yes Surgical History: no surgical history Lives: Spouse/ Significant Other Smoking Status: Never smoker Review of Systems General: Denies: Chills, Fever Eyes: Denies: Visual changes - bilaterally ENT: Denies: Bilateral ear pain Cardiovascular: Denies: Chest pain Respiratory: Denies: Dyspnea Gastrointestinal: Denies: Abdominal pain Musculoskeletal: Reports: Swelling, Extremity Pain Skin: Denies: Rash Neurological: Denies: Headache Hematologic: Denies: Easy bruising, Easy bleeding Allergy: Denies: Uticaria Physical Exam Vital Signs/Narrative: Vital Signs Temp Pulse Resp BP Pulse Ox 04/10/20 20:19 98.2 F 90 18 139/82 H 97 Inital Vital Signs reviewed: Yes General: Well nourished, Well developed Head: Normocephalic ENT: Moist mucous membranes Neck: Supple Cardiovascular: Regular rate, Regular rhythm Respiratory: No distress, CTA bilaterally Abdomen: Soft, Nontender, - - Healing surgical wounds on the lower abdomen Extremities: - - Tenderness with palpable cord on the proximal right thigh. Minimal erythema. Neurological: Alert, Oriented x3 Psychological: Normal affect Diagnostic/Tx/Re-eval Venous ultrasound of the right lower extremity is obtained. Per report from tech, patient has a clot in the proximal femoral vein as well as in the great saphenous vein proximally and into the calf. - Medical Decision Making Venous ultrasound was performed and does reveal evidence of DVT. Recent labs were reviewed. He is given a dose of Xarelto. I did speak with Dr. Mcclain and he agrees with this treatment. I will write him for the first 3 weeks and patient is to follow with his PCP for prescription following this. ED Disposition - Plan for ED Patient: Disposition: Home or Assisted Living Diagnosis: DVT (deep venous thrombosis) Instructions: ED DVT Prescriptions: Rivaroxaban [Xarelto] 15 mg PO BID #42 tablet Referrals: Gera Belle DO [Primary Care Provider] - 1-2 Weeks
[2020-04-10] MEDS: Rivaroxaban 15 MG Tablet PO (22:34)
[2020-04-10 23:04] VITALS: PULSE 80; RESP 16; O2SAT 98
== END 2020-04-10 23:05 | disposition home or self-care (01) ==
PROVIDERS: Emergency Provider Emergency Medicine; PCP Family Medicine
DX: I82.411 Acute embolism and thrombosis of right femoral vein (principal); I82.890 Acute embolism and thrombosis of other specified veins; I10 Essential (primary) hypertension; K21.9 Gastro-esophageal reflux disease without esophagitis; Z85.46 Personal history of malignant neoplasm of prostate; Z86.718 Personal history of other venous thrombosis and embolism; Z79.01 Long term (current) use of anticoagulants; Z79.899 Other long term (current) drug therapy
CPT/HCPCS: 93971; 99282

== ENCOUNTER → 2020-04-30 07:48 | Outpatient (CLI) | payer MEDICARE, SELFPAY ==
[2020-04-10 20:19] VITALS: BMI 30.6
--- NOTE | 2020-04-30 07:51 | CT_ITS ---
STUDY: CT ABDOMEN AND PELVIS WITH CONTRAST REASON FOR EXAM: Male, 69 years old. Malignant neoplasm of prostate, elevated PSA, radical prostatectomy 03/2020. Hx hypertension. Denies pain or urinary symptoms. RADIATION DOSAGE (If Supplied By Facility): CTDIvol = ( 20.52 ) mGy, DLP = ( 2252.40 ) mGycm TECHNIQUE: Transaxial images were obtained from the dome of the diaphragm to the symphysis pubis with oral contrast. Oral and amp; IV Readi-CAT and amp; 100mL Isovue-300 was administered. Sagittal and coronal images were reconstructed. Individualized dose optimization techniques were used for this CT. COMPARISON: None. FINDINGS: 5.9 mm noncalcified nodule in the peripheral lateral aspect of the left lower lobe. Minimal increased markings at the right lung base suggestive of atelectasis. The visualized portions of the heart are within normal limits. There is a 6.3 mm rounded hypodensity in the left lobe of the liver suggestive of a small cyst. A similar appearing 6.3 mm hypodensity seen in the medial aspect of the right lobe of the liver. Normal gallbladder and extrahepatic biliary system. Normal spleen. Normal pancreas. Normal bilateral adrenal glands. Normal right kidney. There is a 2.8 cm x 3.3 cm cyst in the upper midportion of the left kidney. There is a small hiatal hernia. Normal small intestine. Normal colon. The appendix is visualized and appears normal. Normal abdominal aorta. Normal inferior vena cava. There is borderline retroperitoneal lymphadenopathy with enlarged nodes no greater than 10mm in the short axis diameter. Small volume urinary bladder with diffuse thickening of the bladder wall. The patient is status post prostatectomy. Small lymph nodes are seen in the pelvic fat. Metastatic disease should be ruled out. Prominent soft tissue density in the subcutaneous fat in the periumbilical region most likely secondary to prior surgery. There are diffuse degenerative changes of the visualized lumbar spine. There is a 7.9 mm round hypodensity in the mid portion of the right iliac bone. This may be a normal variant. CT/Abdomen/Pelvis WITH Contrast IMPRESSION: 5.9 mm noncalcified nodule in the peripheral lateral aspect of the left lower lobe. Findings suggestive of 2 cysts in the liver. Diffusely thickened urinary bladder wall. Findings suggestive of a small pelvic lymphadenopathy. Electronically Signed: Isaac Garsia, at 11:19 EDT , Service support ,
== END ==
PROVIDERS: PCP Family Medicine; Referring Provider Urology; Visit Provider Urology
DX: C61 Malignant neoplasm of prostate (principal)
CPT/HCPCS: 74177; Q9967

== ENCOUNTER → 2020-05-02 08:51 | Outpatient (CLI) | payer MEDICARE, SELFPAY ==
[2020-04-10 20:19] VITALS: BMI 30.6
--- NOTE | 2020-05-02 08:59 | NM_ITS ---
CLINICAL: 69-year-old male with reported history of carcinoma of the prostate. WHOLE BODY 99m Tc MDP RADIONUCLIDE BONE SCINTIGRAPHY COMPARISON: CT of the abdomen-pelvis report 04/30/2020 FINDINGS: Following the intravenous administration of 24.5 mCi of 99m Tc MDP, whole body bone images reveal: 1. Increased radiopharmaceutical concentration is defined in the right posterior 11th-12th ribs. 2. Enhanced tracer uptake is visualized in the lower cervical spine posteriorly on the left and right, 10th thoracic vertebra posteriorly on the left, bilateral wrist and knee articulations, second lumbar vertebra posteriorly on the right, right posterior midline sacrum. 3. The remaining skeletal structures are scintigraphically unremarkable with normal-appearing renal images and urinary bladder activity identified. An increase in tracer distribution is noted in the bilateral maxilla most consistent with periodontal disease and/or periostitis. NM/Bone Scan Whole Body IMPRESSION: 1. The increase in radiopharmaceutical concentration identified in the right posterior 11th-12th ribs is most consistent with trauma-fracture. 2. Degenerative arthritis appears expressed in the cervical, thoracic and lumbar spine, both wrists, right-left knees, sacrum. 3. There is no definitive typical scintigraphic evidence of diffuse axial skeletal metastatic disease on the current examination. Electronically Signed: Amari Mckeon DO at 21:32 EDT Tel , Service support ,
== END ==
PROVIDERS: PCP Family Medicine; Referring Provider Urology; Visit Provider Urology
DX: C61 Malignant neoplasm of prostate (principal)
CPT/HCPCS: 78306

== ENCOUNTER → 2020-05-15 07:15 | Outpatient (CLI) | payer MEDICARE, SELFPAY ==
[2020-05-15 08:30] LABS: Absolute Lymphocyte Count 1.83 X10^3/uL (0.83-4.51); Absolute Neutrophil Count 2.7 X10^3/uL (2.0-7.7); Basophil# 0.06 X10^3/uL; Basophil% 1.1 % (0-1); Eosinophil# 0.29 X10^3/uL; Eosinophils% 5.1 % (0-5); Hematocrit 41.1 % (40-54); Hemoglobin 12.3 g/dL (13.0-16.5); Lymphocyte # 1.83 X10^3/ul (4.0); Lymphocyte % 32.4 % (19-41); Mean Corp Hgb Conc 29.9 g/dL (32-36); Mean Corpuscular Hgb 24.6 pg (27.0-32.0); Monocyte# 0.71 X10^3/uL; Monocyte% 12.6 % (0-10); NRBC Flagged by Analyzer 0 % (0-5); Neutrophil # 2.74 X10^3/uL (2.7-7.7); Neutrophil % 48.6 % (47-70); Platelet Count 324 K/mm3 (150-450); RBC Distribution Width CV 15.3 % (11.6-14.6); RBC Distribution Width SD 45.6 fl (35.1-43.9); Red Blood Count 5.01 M/mm3 (4.6-6.2); White Blood Count 5.6 K/mm3 (4.4-11.0)
[2020-05-15 09:03] LABS: Vitamin B12 359 pg/mL (211-911)
[2020-05-15 09:06] LABS: ALB/GLOB Ratio 1.1 RATIO (0.9-2.4); AST(SGOT) 20 U/L (15-37); Alanine Aminotransfer ALT/SGPT 25 U/L (16-61); Albumin, Serum 3.8 g/dL (3.2-5.0); Alkaline Phosphatase 67 U/L (45-117); Anion Gap 4 (5-15); BUN 12 mg/dL (7-18); BUN/Creat Ratio 12.4 RATIO (10-20); Calcium,Total 8.7 mg/dL (8.5-10.1); Chloride 107 mmol/L (98-107); Cholesterol 199 mg/dL (200); Creatinine, Serum 0.97 mg/dL (0.70-1.30); EST Glomerular Filtration Rate 82 mL/min (>60); Est Glom Filt Rate - Afr Amer 99 mL/min (>60); Globulin 3.6 g/dL (2.2-4.2); Glucose 94 mg/dL (74-106); High Density Lipoprotein 55 mg/dL; PSA,Total- Diagnostic 1.68 ng/mL (0.0-4.0); Potassium 3.8 mmol/L (3.5-5.1); Protein, Total 7.4 g/dL (6.4-8.2); Sodium Level 139 mmol/L (136-145); Triglycerides 136 mg/dL; Very Low Density Lipoprotein 27 mg/dL (5-40)
== END ==
PROVIDERS: PCP Family Medicine; Referring Provider Urology; Visit Provider Urology
DX: I10 Essential (primary) hypertension (principal); E78.5 Hyperlipidemia, unspecified; E53.8 Deficiency of other specified B group vitamins; D64.9 Anemia, unspecified; Z48.816 Encounter for surgical aftercare following surgery on the genitourinary system; R97.20 Elevated prostate specific antigen [PSA]
CPT/HCPCS: 36415; 80053; 80061; 82607; 84153; 85025

== ENCOUNTER → 2020-06-17 13:46 | Outpatient (CLI) | payer MEDICARE, SELFPAY | PROVIDERS: PCP Family Medicine; Referring Provider Urology; Visit Provider Urology | DX: C61 Malignant neoplasm of prostate (principal) ==

== ENCOUNTER → 2020-07-01 13:52 | Outpatient (CLI) | payer MEDICARE, SELFPAY ==
--- NOTE | 2020-07-01 14:00 | PET_ITS ---
EXAMINATION: 18F Fluciclovine PET/CT CLINICAL HISTORY: A 69-year-old male with history of carcinoma of the prostate presenting for restaging examination. COMPARISON EXAMINATION: Whole body bone scintigraphy study report dated 05/02/2020, CT of the abdomen-pelvis report dated 04/30/2020 PROCEDURE: The patient received an intravenous bolus injection of 10.7 mCi of Axumin (fluciclovine F-18) via the right hand, on the imaging table with the patient in the supine position followed by an intravenous normal saline flush. The patient in the supine position with arms above the head, CT scan for attenuation correction was performed immediately following the bolus injection and left up for 1-2 minutes. The PET scan acquisition was begun within 3-5 minutes following injection from mid thigh to the base of the skull. The total scan time was registered between 20-30 minutes. Axumin (fluciclovine F-18) injection is indicated for positron emission tomography PET imaging in men with suspected prostate cancer recurrence based on elevation of the serum prostatic surface antigen (PSA) levels following prior treatment intervention. HEIGHT: 72 inches. WEIGHT: 230 lbs. FINDINGS: Head/Neck: There is no evidence of abnormal increased metabolism in the pharyngeal mucosal space, parapharyngeal space, bilateral-lateral and anterior neck, hypopharynx and distribution of the laryngeal structures. There is uniform distribution of the radiopharmaceutical concentration defined in the visualized cerebellar hemispheres and cerebral cortical structures.? CHEST: There is no quantitative scintigraphic evidence of abnormal increased metabolism within the context of the bilateral hemithorax pulmonary parenchyma, right and left hemithoracic pleural interface, mediastinal structures and thoracic perihilum. No definitive abnormal increased metabolism is noted on review of three axis reconstructions on meticulous inspection of the chest. Normal mediastinal and cardiac blood pool distribution of the radiopharmaceutical is defined. Pertinent chest CT findings are as follows. Bilateral axillary soft tissue densities with fatty hilus are non-fluciclovine avid. A non-calcified parenchymal density defined in the left lower posterolateral lung-left lower lobe reveals no evidence of increased tracer concentration. There are no additional parenchymal densities-nodules defined in the right and left hemithorax. Abdomen/Pelvis: Normal physiologic distribution of the radiopharmaceutical is apparent in the hepatic and splenic parenchyma, pancreas, pancreatic head-tail, both renal units, bladder and visualized intestinal tract. Pertinent abdomen and pelvis CT findings are as follows. There is atherosclerotic calcification defined in the abdominal aorta without evidence of dilatation-aneurysm formation. A fat containing left inguinal hernia is noted. Right and left inguinal soft tissue densities with fatty hilus reveal no evidence of quantitatively significant increased 18-F fluciclovine uptake. Colonic diverticulosis is encountered without evidence of diverticulitis. Cortical cyst formation is observed in the left kidney. Skeletal: Degenerative changes are noted in the cervical, thoracic and lumbar spine. PET/PET/CT Tumor Base -Thigh Subs IMPRESSION: 1. NEGATIVE EXAMINATION. There is no definitive quantitative scintigraphic evidence of fluciclovine-avid viable neoplasm. (Chiquis et al, Journal of Nuclear Medicine 55:1986, 2014). Electronic Signature Amari Mckeon D.O. Electronically Signed: Amari Mckeon DO at 21:50 EST Tel , Service support ,
== END ==
PROVIDERS: PCP Family Medicine; Referring Provider Urology; Visit Provider Urology
DX: C61 Malignant neoplasm of prostate (principal)
CPT/HCPCS: 78815; A9552

== ENCOUNTER → 2020-07-09 13:07 | Outpatient (CLI) | payer MEDICARE, SELFPAY ==
[2020-07-08 12:32] LABS: Absolute Lymphocyte Count 1.82 X10^3/uL (0.83-4.51); Absolute Neutrophil Count 2.6 X10^3/uL (2.0-7.7); Basophil# 0.07 X10^3/uL; Basophil% 1.3 % (0-1); Eosinophil# 0.26 X10^3/uL; Eosinophils% 4.7 % (0-5); Hematocrit 39.9 % (40-54); Hemoglobin 12.3 g/dL (13.0-16.5); Lymphocyte # 1.82 X10^3/ul (4.0); Lymphocyte % 33.2 % (19-41); Mean Corp Hgb Conc 30.8 g/dL (32-36); Mean Corpuscular Hgb 25.2 pg (27.0-32.0); Mean Corpuscular Volume 81.8 fL (80-94); Monocyte# 0.72 X10^3/uL; Monocyte% 13.1 % (0-10); NRBC Flagged by Analyzer 0 % (0-5); Neutrophil # 2.59 X10^3/uL (2.7-7.7); Neutrophil % 47.3 % (47-70); Platelet Count 270 K/mm3 (150-450); RBC Distribution Width CV 15.9 % (11.6-14.6); RBC Distribution Width SD 46.4 fl (35.1-43.9); Red Blood Count 4.88 M/mm3 (4.6-6.2); White Blood Count 5.5 K/mm3 (4.4-11.0)
[2020-07-08 13:02] LABS: Creatinine, Serum 0.97 mg/dL (0.70-1.30); EST Glomerular Filtration Rate 82 mL/min (>60); Est Glom Filt Rate - Afr Amer 99 mL/min (>60); PSA,Total- Diagnostic 0.03 ng/mL (0.0-4.0)
--- NOTE | 2020-07-09 13:30 | CT_ITS ---
STUDY: CT PELVIS WITH CONTRAST REASON FOR EXAM: Male, 69 years old. Prostate planning prostatectomy with bladder reconstruction RADIATION DOSAGE (If Supplied By Facility): CTDIvol = ( 24.62 ) mGy, DLP = ( 733.38 ) mGycm TECHNIQUE: Transaxial imaging of the pelvis was performed without oral contrast. Oral and amp; IV READII-CAT and amp; 100ML ISOVUE 300 was administered intravenously. Individualized dose optimization techniques were used for this CT. COMPARISON: Comparison is made with prior study dated 04/30/2020. FINDINGS: Normal urinary bladder. The patient is status post prostatectomy. Metallic radiation seeds are seen within the prostate bed. Normal visualized small intestine. There are multiple colonic diverticula of the sigmoid colon consistent with chronic diverticulosis. There is no pelvic fluid. There is no pelvic lymphadenopathy or mass lesion. Normal visualized pelvic arteries. Stable soft tissue density deep to the umbilicus most likely secondary to prior surgery. Small left inguinal hernia containing fat. Normal osseous structures. CT/CT Pelvis W/CONT Therapy IMPRESSION: Status post prostatectomy. Metallic radiation seeds are seen in the prostate bed. Electronically Signed: Isaac Garsia, at 14:21 EST , Service support ,
== END ==
PROVIDERS: PCP Family Medicine; Referring Provider Radiology Radiation Oncology; Visit Provider Radiology Radiation Oncology
DX: Z01.818 Encounter for other preprocedural examination (principal); C61 Malignant neoplasm of prostate
CPT/HCPCS: 36415; 51600; 72193; 82565; 84153; 85025; Q9967

== ENCOUNTER → 2020-08-04 11:51 | Outpatient (CLI) | payer MEDICARE, SELFPAY ==
[2020-08-04 15:43] LABS: Absolute Neutrophil Count 2.3 X10^3/uL (2.0-7.7); Basophil# 0.03 X10^3/uL; Basophil% 0.7 % (0-1); Eosinophils% 4.6 % (0-5); Hematocrit 40.9 % (40-54); Hemoglobin 12.6 g/dL (13.0-16.5); Lymphocyte % 27.6 % (19-41); Mean Corp Hgb Conc 30.8 g/dL (32-36); Mean Corpuscular Volume 84.3 fL (80-94); Monocyte# 0.63 X10^3/uL; Monocyte% 14.5 % (0-10); NRBC Flagged by Analyzer 0 % (0-5); Neutrophil # 2.27 X10^3/uL (2.7-7.7); Neutrophil % 52.1 % (47-70); Platelet Count 216 K/mm3 (150-450); RBC Distribution Width CV 17.7 % (11.6-14.6); RBC Distribution Width SD 52.7 fl (35.1-43.9); Red Blood Count 4.85 M/mm3 (4.6-6.2); White Blood Count 4.4 K/mm3 (4.4-11.0)
== END ==
PROVIDERS: PCP Family Medicine; Referring Provider Radiology Radiation Oncology; Visit Provider Radiology Radiation Oncology
DX: C61 Malignant neoplasm of prostate (principal)
CPT/HCPCS: 36415; 85025

== ENCOUNTER → 2020-08-26 11:34 | Outpatient (CLI) | payer MEDICARE, SELFPAY ==
[2020-08-26 12:18] LABS: Absolute Lymphocyte Count 0.89 X10^3/uL (0.83-4.51); Absolute Neutrophil Count 3.1 X10^3/uL (2.0-7.7); Basophil# 0.05 X10^3/uL; Eosinophil# 0.21 X10^3/uL; Hematocrit 41.4 % (40-54); Hemoglobin 12.9 g/dL (13.0-16.5); Lymphocyte # 0.89 X10^3/ul (4.0); Lymphocyte % 17.1 % (19-41); Mean Corp Hgb Conc 31.2 g/dL (32-36); Mean Corpuscular Hgb 26.5 pg (27.0-32.0); Mean Platelet Vol. 9.9 fl (6.2-12.0); Monocyte# 0.93 X10^3/uL; Monocyte% 17.9 % (0-10); NRBC Flagged by Analyzer 0 % (0-5); Neutrophil # 3.09 X10^3/uL (2.7-7.7); Neutrophil % 59.2 % (47-70); Platelet Count 247 K/mm3 (150-450); RBC Distribution Width CV 18.4 % (11.6-14.6); RBC Distribution Width SD 57.1 fl (35.1-43.9); Red Blood Count 4.87 M/mm3 (4.6-6.2); White Blood Count 5.2 K/mm3 (4.4-11.0)
== END ==
PROVIDERS: PCP Family Medicine; Referring Provider Radiology Radiation Oncology; Visit Provider Radiology Radiation Oncology
DX: C61 Malignant neoplasm of prostate (principal)
CPT/HCPCS: 36415; 85025

== ENCOUNTER → 2020-10-01 10:16 | Outpatient (CLI) | payer MEDICARE, SELFPAY ==
[2020-10-01 13:10] LABS: D-Dimer Quantitative (DVT/PE) 1.34 FEU/ug/m (0.27-0.49)
== END ==
PROVIDERS: PCP Family Medicine; Visit Provider Family Medicine
DX: M79.89 Other specified soft tissue disorders (principal)
CPT/HCPCS: 36415; 85379

== ENCOUNTER → 2020-10-02 08:40 | Outpatient (CLI) | payer MEDICARE, SELFPAY ==
--- NOTE | 2020-10-02 08:44 | VDLE_ITS ---
Reason For Study: pain, edema RIGHT LEFT GSV is normal. GSV is normal. CFV is compressible, spontaneous, phasic, CFV is compressible, spontaneous, phasic, competent and demonstrates normal competent, and demonstrates normal augmentation. augmentation. FV is compressible, spontaneous, phasic, FV is compressible, spontaneous, phasic, competent and demonstrates normal competent and demonstrates normal augmentation. augmentation. POP V is compressible, spontaneous, phasic, POP V is compressible, spontaneous, phasic, competent and demonstrates normal competent and demonstrates normal augmentation. augmentation. T/P Trunk is compressible. T/P Trunk is compressible. PTV is compressible. PTV is compressible. RT PerV is compressible. LT PerV is compressible. Procedure This is a venous duplex using B-mode, color flow and spectral Doppler. Exam performed in department. The exam was diagnostic. A preliminary report was called and/or faxed to Dr. Belle. Interpretation Summary Deep veins of the lower extremities are bilaterally patent and compressible segmentally. There is no evidence of deep vein thrombosis on either side. Valvular competence appears intact within the proximal deep venous systems bilaterally. The great saphenous veins appear bilaterally patent and compressible segmentally. Ordering Physician: Gera Belle Performed By: Justyn Guardado RVKamar
== END ==
PROVIDERS: PCP Family Medicine; Visit Provider Family Medicine
DX: M79.89 Other specified soft tissue disorders (principal); Z86.718 Personal history of other venous thrombosis and embolism
CPT/HCPCS: 93970

== ENCOUNTER → 2020-11-06 09:21 | Outpatient (CLI) | payer MEDICARE, SELFPAY ==
[2020-11-06 12:56] LABS: PSA,Total- Diagnostic < 0.01 ng/mL (0.0-4.0)
== END ==
PROVIDERS: PCP Family Medicine; Referring Provider Urology; Visit Provider Urology
DX: C61 Malignant neoplasm of prostate (principal)
CPT/HCPCS: 36415; 84153

== ENCOUNTER → 2021-03-02 09:12 | Outpatient (CLI) | payer MEDICARE, SELFPAY ==
[2021-03-02 13:33] LABS: PSA,Total- Diagnostic < 0.01 ng/mL (0.0-4.0)
== END ==
PROVIDERS: PCP Family Medicine; Referring Provider Urology; Visit Provider Urology
DX: C61 Malignant neoplasm of prostate (principal)
CPT/HCPCS: 36415; 84153

== ENCOUNTER → 2021-07-15 10:14 | Outpatient (CLI) | payer MEDICARE, SELFPAY ==
--- NOTE | 2021-07-15 10:24 | BD_ITS ---
STUDY: DUAL ENERGY X-RAY ABSORPTIOMETRY / DXA REASON FOR EXAM: Male, 70 years old. M810 TECHNIQUE: Bone Mineral Density (BMD) measurements of lumbar spine and bilateral hips were obtained. COMPARISON: None. FINDINGS: Lumbar Spine (L1-L4): g/cm2 (1.288) / T-score (1.8) / Z-score (2.7) Findings are suggestive of normal bone density with a low fracture risk. Left Femur Total: g/cm2 (1.106) / T-score (0.5) / Z-score (1.1) Left Femoral Neck: g/cm2 (0.875) / T-score (-0.4) / Z-score (0.8) Right Femur Total: g/cm2 (1.120) / T-score (0.6) / Z-score (1.2) Right Femoral Neck: g/cm2 (0.900) / T-score (-0.2) / Z-score (0.9) BD/Dexa Bone Density Study IMPRESSION: The patient is considered normal as outlined below according to World Good Organization (WHO) criteria with a low fracture risk. Reference Information: The T-score is the number of standard deviations above or below the standard which is normal for young adults at their peak bone mineral density. The World Health Organization (WHO) interprets the T-scores as follows: Above -1 Normal bone density Between -1 and -2.5 Osteopenia Equal to / or below -2.5 Osteoporosis As a practical clinical guideline, osteopenia may be graded as follows: Mild -1 through -1.5 Moderate -1.6 through -2.0 Severe -2.1 through -2.4 The Z-score is the number of standard deviations above or below age-matched controls. A Z-score of less than -1.5 would be considered abnormal. References: 1. NIH Osteoporosis and Related Bone Diseases www osteo.org 2. International Society for Clinical Densitometry www iscd.org 3. National Osteoporosis Foundation www nof.org Electronically Signed: Isaac Garsia MD at 13:22 EST , Service support ,
== END ==
PROVIDERS: PCP Family Medicine; Visit Provider Urology
DX: M81.0 Age-related osteoporosis without current pathological fracture (principal); C61 Malignant neoplasm of prostate; Z13.820 Encounter for screening for osteoporosis; Z79.890 Hormone replacement therapy
CPT/HCPCS: 77080

== ENCOUNTER 2021-09-03 10:31 | Outpatient (CLI) | payer MEDICARE, SELFPAY ==
[2021-09-03 12:49] LABS: PSA,Total- Diagnostic < 0.01 ng/mL (0.0-4.0)
== END 2021-09-03 23:59 | disposition short-term general hospital (02) ==
LOC: BIMLAB 10:32
PROVIDERS: PCP Family Medicine; Referring Provider Urology; Visit Provider Urology
DX: C61 Malignant neoplasm of prostate (principal)
CPT/HCPCS: 36415; 84153

== ENCOUNTER 2021-12-07 09:56 | Outpatient (CLI) | payer MEDICARE, SELFPAY ==
[2021-12-07 12:35] LABS: PSA,Total- Diagnostic < 0.01 ng/mL (0.0-4.0)
== END 2021-12-07 23:59 | disposition home or self-care (01) ==
LOC: BIMLAB 09:57
PROVIDERS: PCP Family Medicine; Referring Provider Registered Nurse; Visit Provider Registered Nurse
DX: C61 Malignant neoplasm of prostate (principal)
CPT/HCPCS: 36415; 84153

== ENCOUNTER → 2022-03-10 | Outpatient (CLI) | payer MEDICARE, SELFPAY ==
[2022-03-10 12:47] LABS: PSA,Total- Diagnostic < 0.01 ng/mL (0.0-4.0)
== END | disposition home or self-care (01) ==
PROVIDERS: Registered Nurse; PCP Family Medicine; Referring Provider Urology; Visit Provider Urology
DX: C61 Malignant neoplasm of prostate (principal)
CPT/HCPCS: 36415; 84153

== ENCOUNTER → 2022-05-25 | Outpatient (CLI) | payer MEDICARE, SELFPAY ==
[2022-05-25 12:20] LABS: Absolute Lymphocyte Count 0.99 X10^3/uL (0.83-4.51); Absolute Neutrophil Count 2.6 X10^3/uL (2.0-7.7); Basophil# 0.05 X10^3/uL; Basophil% 1.1 % (0-1); Eosinophil# 0.26 X10^3/uL; Eosinophils% 5.7 % (0-5); Hemoglobin 14.4 g/dL (13.0-16.5); Lymphocyte # 0.99 X10^3/ul (0.83-4.51); Lymphocyte % 21.5 % (19-41); Mean Corp Hgb Conc 34.3 g/dL (32-36); Mean Corpuscular Hgb 32.1 pg (27.0-32.0); Mean Corpuscular Volume 93.8 fL (80-94); Mean Platelet Vol. 10.1 fl (6.2-12.0); Monocyte# 0.66 X10^3/uL; Monocyte% 14.3 % (0-10); NRBC Flagged by Analyzer 0 % (0-5); Neutrophil # 2.63 X10^3/uL (2.7-7.7); Neutrophil % 57.2 % (47-70); Platelet Count 222 K/mm3 (150-450); RBC Distribution Width SD 44.3 fl (35.1-43.9); Red Blood Count 4.48 M/mm3 (4.6-6.2); White Blood Count 4.6 K/mm3 (4.4-11.0)
[2022-05-25 13:43] LABS: ALB/GLOB Ratio 1.1 RATIO (0.9-2.4); AST(SGOT) 24 U/L (15-37); Alanine Aminotransfer ALT/SGPT 22 U/L (16-61); Albumin, Serum 3.8 g/dL (3.2-5.0); Alkaline Phosphatase 79 U/L (45-117); Anion Gap 6 (5-15); BUN 19 mg/dL (7-18); BUN/Creat Ratio 22.8 RATIO (10-20); Calcium,Total 9.4 mg/dL (8.5-10.1); Chloride 108 mmol/L (98-107); Cholesterol 234 mg/dL (200); Creatinine, Serum 0.83 mg/dL (0.70-1.30); EST Glomerular Filtration Rate 97 mL/min (>60); Est Glom Filt Rate - Afr Amer 117 mL/min (>60); Globulin 3.5 g/dL (2.2-4.2); Glucose 98 mg/dL (74-106); High Density Lipoprotein 58 mg/dL; Magnesium 2.2 mg/dL (1.6-2.6); Potassium 4.4 mmol/L (3.5-5.1); Protein, Total 7.3 g/dL (6.4-8.2); Sodium Level 142 mmol/L (136-145); Triglycerides 140 mg/dL; Very Low Density Lipoprotein 28 mg/dL (5-40)
== END | disposition home or self-care (01) ==
LOC: BFHLAB 09:21
PROVIDERS: PCP Family Medicine; Visit Provider Family Medicine
DX: I10 Essential (primary) hypertension (principal); E78.5 Hyperlipidemia, unspecified; R00.1 Bradycardia, unspecified; R25.2 Cramp and spasm
CPT/HCPCS: 36415; 80053; 80061; 83735; 84443; 85025

== ENCOUNTER → 2022-06-21 | Outpatient (CLI) | payer MEDICARE, SELFPAY ==
[2022-06-21 12:54] LABS: PSA,Total- Diagnostic < 0.01 ng/mL (0.0-4.0)
== END | disposition home or self-care (01) ==
LOC: BIMLAB 09:23
PROVIDERS: PCP Family Medicine; Referring Provider Registered Nurse; Visit Provider Registered Nurse
DX: C61 Malignant neoplasm of prostate (principal)
CPT/HCPCS: 36415; 84153

== ENCOUNTER → 2022-09-17 | Outpatient (CLI) | payer MEDICARE, SELFPAY ==
[2022-09-17 15:33] LABS: PSA,Total- Diagnostic < 0.01 ng/mL (0.0-4.0)
== END | disposition home or self-care (01) ==
LOC: BIMLAB 13:41
PROVIDERS: PCP Family Medicine; Referring Provider Urology; Visit Provider Urology
DX: C61 Malignant neoplasm of prostate (principal)
CPT/HCPCS: 36415; 84153

== ENCOUNTER → 2022-12-18 | Outpatient (CLI) | payer MEDICARE, SELFPAY ==
[2022-12-18 12:42] LABS: PSA,Total - Annual Screen < 0.01 ng/mL (0.00-4.00)
== END | disposition home or self-care (01) ==
LOC: LAB 11:27
PROVIDERS: PCP Family Medicine; Referring Provider Registered Nurse; Visit Provider Registered Nurse
DX: C61 Malignant neoplasm of prostate (principal); Z12.5 Encounter for screening for malignant neoplasm of prostate
CPT/HCPCS: 36415; 84153; G0103

== ENCOUNTER → 2023-03-31 | Outpatient (CLI) | payer MEDICARE, SELFPAY ==
[2023-03-31 12:38] LABS: PSA,Total- Diagnostic < 0.01 ng/mL (0.0-4.0)
== END | disposition home or self-care (01) ==
LOC: BIMLAB 09:41
PROVIDERS: PCP Family Medicine; Referring Provider Urology; Visit Provider Urology
DX: C61 Malignant neoplasm of prostate (principal)
CPT/HCPCS: 36415; 84153

== ENCOUNTER → 2023-06-29 | Outpatient (CLI) | payer MEDICARE, SELFPAY ==
[2023-06-29 12:19] LABS: Absolute Lymphocyte Count 0.97 X10^3/uL (0.83-4.51); Absolute Neutrophil Count 3.3 X10^3/uL (2.0-7.7); Basophil# 0.06 X10^3/uL; Basophil% 1.2 % (0-1); Eosinophil# 0.25 X10^3/uL; Eosinophils% 4.8 % (0-5); Hematocrit 43.9 % (40-54); Hemoglobin 14.1 g/dL (13.0-16.5); Lymphocyte # 0.97 X10^3/ul (0.83-4.51); Lymphocyte % 18.8 % (19-41); Mean Corp Hgb Conc 32.1 g/dL (32-36); Mean Corpuscular Hgb 30.5 pg (27.0-32.0); Mean Corpuscular Volume 94.8 fL (80-94); Mean Platelet Vol. 10.7 fl (6.2-12.0); Monocyte# 0.62 X10^3/uL; NRBC Flagged by Analyzer 0 % (0-5); Neutrophil # 3.25 X10^3/uL (2.7-7.7); Neutrophil % 62.8 % (47-70); Platelet Count 232 K/mm3 (150-450); RBC Distribution Width CV 12.7 % (11.6-14.6); RBC Distribution Width SD 43.9 fl (35.1-43.9); Red Blood Count 4.63 M/mm3 (4.6-6.2); White Blood Count 5.2 K/mm3 (4.4-11.0)
[2023-06-29 12:40] LABS: AST(SGOT) 19 U/L (15-37); Alanine Aminotransfer ALT/SGPT 24 U/L (16-61); Albumin, Serum 3.4 g/dL (3.2-5.0); Alkaline Phosphatase 68 U/L (45-117); Anion Gap 4 (5-15); BUN 21 mg/dL (7-18); Calcium,Total 8.6 mg/dL (8.5-10.1); Chloride 109 mmol/L (98-107); Cholesterol 218 mg/dL (200); Creatinine, Serum 0.78 mg/dL (0.70-1.30); EST Glomerular Filtration Rate 104 mL/min (>60); Est Glom Filt Rate - Afr Amer 126 mL/min (>60); Globulin 3.5 g/dL (2.2-4.2); Glucose 97 mg/dL (74-106); High Density Lipoprotein 58 mg/dL; PSA,Total- Diagnostic < 0.01 ng/mL (0.0-4.0); Protein, Total 6.9 g/dL (6.4-8.2); Sodium Level 141 mmol/L (136-145); Triglycerides 137 mg/dL; Very Low Density Lipoprotein 27 mg/dL (5-40)
[2023-06-29 12:46] LABS: Vitamin B12 568 pg/mL (211-911)
== END | disposition home or self-care (01) ==
LOC: BIMLAB 09:10
PROVIDERS: PCP Family Medicine; Referring Provider Family Medicine; Visit Provider Family Medicine
DX: C61 Malignant neoplasm of prostate (principal); I10 Essential (primary) hypertension; E78.5 Hyperlipidemia, unspecified; G62.9 Polyneuropathy, unspecified; E53.8 Deficiency of other specified B group vitamins
CPT/HCPCS: 36415; 80053; 80061; 82607; 84153; 85025

== ENCOUNTER → 2023-10-05 | Outpatient (CLI) | payer MEDICARE, SELFPAY ==
[2023-10-05 16:56] LABS: PSA,Total- Diagnostic < 0.01 ng/mL (0.0-4.0)
== END | disposition home or self-care (01) ==
LOC: LAB 15:39
PROVIDERS: PCP Family Medicine; Referring Provider Urology; Visit Provider Urology
DX: C61 Malignant neoplasm of prostate (principal)
CPT/HCPCS: 36415; 84153

== ENCOUNTER → 2024-01-04 | Outpatient (CLI) | payer MEDICARE, SELFPAY ==
[2024-01-04 15:43] LABS: PSA,Total- Diagnostic < 0.01 ng/mL (0.0-4.0)
== END | disposition home or self-care (01) ==
LOC: BIMLAB 14:14
PROVIDERS: PCP Family Medicine; Referring Provider Urology; Visit Provider Urology
DX: C61 Malignant neoplasm of prostate (principal)
CPT/HCPCS: 36415; 84153

== ENCOUNTER → 2024-04-20 | Outpatient (CLI) | payer MEDICARE, SELFPAY ==
[2024-04-20 10:50] LABS: PSA,Total- Diagnostic < 0.01 ng/mL (0.0-4.0)
== END | disposition home or self-care (01) ==
LOC: LAB 09:38
PROVIDERS: PCP Family Medicine; Referring Provider Urology; Visit Provider Urology
DX: C61 Malignant neoplasm of prostate (principal)
CPT/HCPCS: 36415; 84153; 84403

== ENCOUNTER 2024-04-24 11:20 | Emergency (ER) | payer MEDICARE, SELFPAY ==
[2024-04-24 11:20] VITALS: BP 152/95; PULSE 58; RESP 16; TEMP 36.2; O2SAT 99; BMI 34.3
== END 2024-04-24 12:43 | disposition left against medical advice (07) ==
LOC: ED 12:43
PROVIDERS: PCP Family Medicine
DX: I74.9 Embolism and thrombosis of unspecified artery (principal)

== ENCOUNTER → 2024-04-24 | Outpatient (CLI) | payer MEDICARE, SELFPAY ==
--- NOTE | 2024-04-24 14:38 | VDLE_ITS ---
Reason For Study: RLE Swelling RIGHT LEFT GSV is normal. CFV is compressible, spontaneous, phasic, CFV is compressible, spontaneous, phasic, competent, and demonstrates normal competent and demonstrates normal augmentation. augmentation. RT PerV is compressible. Rt FV prox/mid/distal, Rt PopV, Rt T/P Trunk, Rt GastrocV, and Rt PTV are DILATED and NON COMPRESSIBLE consistent with acute DVT. Procedure This is a venous duplex using B-mode, color flow and spectral Doppler. Exam performed in department. A preliminary report was called and/or faxed to Teena GARRISON. VL/Venous Duplex US, Unilateral Interpretation Summary Acute deep vein thrombosis is noted in the right femoral vein, popliteal vein, tibioperoneal trunk vein, gastrocnemius vein, posterior tibial vein Ordering Physician: Gera Belle Referring Physician: Gera Belle Performed By: Georgina Hodge, KENYONCS, RVT
== END | disposition home or self-care (01) ==
LOC: CVS 14:37
PROVIDERS: PCP Family Medicine; Referring Provider Family Medicine; Visit Provider Family Medicine
DX: M79.604 Pain in right leg (principal)
CPT/HCPCS: 93971

== ENCOUNTER → 2024-07-12 | Outpatient (CLI) | payer MEDICARE, SELFPAY ==
[2024-07-12 12:19] LABS: Absolute Lymphocyte Count 1.26 X10^3/uL (0.83-4.51); Absolute Neutrophil Count 3.6 X10^3/uL (2.0-7.7); Basophil# 0.07 X10^3/uL; Basophil% 1.2 % (0-1); Eosinophil# 0.29 X10^3/uL; Eosinophils% 4.8 % (0-5); Hematocrit 43.9 % (40-54); Hemoglobin 14.7 g/dL (13.0-16.5); Lymphocyte # 1.26 X10^3/ul (0.83-4.51); Lymphocyte % 21.1 % (19-41); Mean Corp Hgb Conc 33.5 g/dL (32-36); Mean Corpuscular Hgb 30.9 pg (27.0-32.0); Mean Corpuscular Volume 92.4 fL (80-94); Mean Platelet Vol. 10.6 fl (6.2-12.0); Monocyte# 0.78 X10^3/uL; NRBC Flagged by Analyzer 0 % (0-5); Neutrophil # 3.57 X10^3/uL (2.7-7.7); Neutrophil % 59.7 % (47-70); Platelet Count 239 K/mm3 (150-450); RBC Distribution Width CV 13.1 % (11.6-14.6); RBC Distribution Width SD 44.4 fl (35.1-43.9); Red Blood Count 4.75 M/mm3 (4.6-6.2)
[2024-07-12 12:51] LABS: AST(SGOT) 20 U/L (15-37); Alanine Aminotransfer ALT/SGPT 19 U/L (16-61); Albumin, Serum 3.7 g/dL (3.2-5.0); Alkaline Phosphatase 73 U/L (45-117); Anion Gap 5 (5-15); BUN 17 mg/dL (7-18); BUN/Creat Ratio 19.6 RATIO (10-20); Chloride 108 mmol/L (98-107); Cholesterol 221 mg/dL (200); Creatinine, Serum 0.87 mg/dL (0.70-1.30); EST Glomerular Filtration Rate 92 mL/min (>60); Est Glom Filt Rate - Afr Amer 111 mL/min (>60); Globulin 3.6 g/dL (2.2-4.2); Glucose 97 mg/dL (74-106); High Density Lipoprotein 59 mg/dL; PSA,Total- Diagnostic < 0.01 ng/mL (0.0-4.0); Potassium 4.2 mmol/L (3.5-5.1); Protein, Total 7.3 g/dL (6.4-8.2); Sodium Level 140 mmol/L (136-145); Triglycerides 151 mg/dL; Very Low Density Lipoprotein 30 mg/dL (5-40)
== END | disposition home or self-care (01) ==
PROVIDERS: PCP Family Medicine; Referring Provider Family Medicine; Visit Provider Family Medicine
DX: I10 Essential (primary) hypertension (principal); C61 Malignant neoplasm of prostate; E78.5 Hyperlipidemia, unspecified; R00.1 Bradycardia, unspecified
CPT/HCPCS: 36415; 80053; 80061; 84153; 84403; 84443; 85025

== ENCOUNTER → 2025-01-16 | Outpatient (CLI) | payer MEDICARE, SELFPAY ==
[2025-01-16 18:15] LABS: PSA,Total- Diagnostic < 0.02 ng/mL (0.00-4.00)
== END | disposition home or self-care (01) ==
LOC: LAB 15:03
PROVIDERS: PCP Family Medicine; Referring Provider Nurse Practitioner; Visit Provider Nurse Practitioner
DX: C61 Malignant neoplasm of prostate (principal)
CPT/HCPCS: 36415; 84153; 84403

== ENCOUNTER → 2025-07-16 | Outpatient (CLI) | payer MEDICARE, SELFPAY ==
[2025-07-16 12:07] LABS: Hematocrit 46.2 % (40-54); Hemoglobin 15.9 g/dL (13.0-16.5); Immature Granulocytes Count 0.010 X10^3/uL (0.0-0.0); Mean Corp Hgb Conc 34.4 g/dL (32-36); Mean Corpuscular Volume 90.9 fL (80-94); Mean Platelet Vol. 10.7 fl (6.2-12.0); NRBC Flagged by Analyzer 0 % (0-5); Platelet Count 253 K/mm3 (150-450); RBC Distribution Width CV 12.7 % (11.6-14.6); RBC Distribution Width SD 42.5 fl (35.1-43.9); Red Blood Count 5.08 M/mm3 (4.6-6.2); White Blood Count 5.3 K/mm3 (4.4-11.0)
[2025-07-16 13:14] LABS: AST(SGOT) 25 U/L (<=37); Alanine Aminotransfer ALT/SGPT 18 U/L (<=46); Albumin, Serum 4.5 g/dL (3.4-4.8); Alkaline Phosphatase 70 U/L (40-129); Anion Gap 12 (5-15); BUN 20 mg/dL (4-19); BUN/Creat Ratio 24.9 RATIO (10-20); Calcium,Total 9.4 mg/dL (7.6-11.0); Carbon Dioxide 23.8 mmol/L (21.0-32.0); Chloride 105 mmol/L (98-108); Cholesterol 205 mg/dL (<=200); Globulin 3.0 g/dL (2.2-4.2); Glucose 99 mg/dL (70-99); Low Density Lipoprotein Calc. 127 mg/dL; PSA,Total- Diagnostic < 0.02 ng/mL (0.00-4.00); Potassium 4.5 mmol/L (3.3-5.1); Triglycerides 144 mg/dL; Very Low Density Lipoprotein 29 mg/dL (5-40); cholesterol:hdl ratio screen 3.94
== END | disposition home or self-care (01) ==
LOC: BFHLAB 09:38
PROVIDERS: PCP Family Medicine; Visit Provider Family Medicine
DX: I10 Essential (primary) hypertension (principal); E78.5 Hyperlipidemia, unspecified; Z85.46 Personal history of malignant neoplasm of prostate; E29.1 Testicular hypofunction
CPT/HCPCS: 36415; 80053; 80061; 84153; 84403; 85025